=== PATIENT | female | born 1965 | race Hispanic/Latino ===

== ENCOUNTER → 2017-03-19 | Outpatient (CLI) | payer OTHER ==
--- NOTE | 2017-03-19 09:13 | Diagnostic Imaging Report ---
PROCEDURE: CT abdomen and pelvis without contrast. TECHNIQUE: Multiple contiguous axial images were obtained through the abdomen and pelvis without the use of intravenous contrast. INDICATION: Left-sided abdominal pain. The lung bases demonstrate no significant abnormality. The liver, the gallbladder, the pancreas, the spleen, and adrenal glands appear markable. The kidneys demonstrate no hydronephrosis or stones. Calcifications around the distal left ureter appears to relate to phleboliths with no definite ureteric stone. No bladder stone is identified as well. There is suggestion of prior hysterectomy. Correlate with surgical history. There is no bowel obstruction. The appendix is normal. There is abdominal wall laxity and diastases of the recti in the periumbilical region. The abdominal aorta is normal in caliber. No para-aortic significantly enlarged lymph nodes seen. The osseous structures demonstrate minimal left scoliotic curvature. Mild degenerative changes of the hip joints seen. IMPRESSION: 1. No hydronephrosis. Left pelvic calcifications appear to be phleboliths with no definite urinary tract stone. 2. Abdominal wall laxity and diastases of the recti in the periumbilical region. Dictated by: Dictated on workstation # [id number]
== END ==
LOC: RAD 08:31
PROVIDERS: ATTEND Nurse Practitioner Family
DX: R10.30 Lower abdominal pain, unspecified (principal)
CPT/HCPCS: 74176

== ENCOUNTER 2017-04-27 11:30 | Outpatient (CLI) | payer OTHER ==
[~2017-04-27] VITALS: Ht 134.6 cm
[2017-04-28] MEDS ORDERED: OMG1KC PO (08:08)
[2017-04-28] MEDS ORDERED: PRAV20TA3 PO (08:09)
[2017-04-28] MEDS ORDERED: LORA-714 PO (08:09)
[2017-04-28] MEDS ORDERED: SUCR1TAB36 PO (08:55)
[2017-04-28] MEDS ORDERED: PANT40SU PO (08:55)
== END 2017-04-27 11:55 ==
LOC: PREOP 11:30
PROVIDERS: ATTEND Surgery
DX: Z01.818 Encounter for other preprocedural examination (principal); K29.70 Gastritis, unspecified, without bleeding; Z12.11 Encounter for screening for malignant neoplasm of colon

== ENCOUNTER 2017-04-28 07:17 | Day surgery (SDC) | payer OTHER ==
[~2017-04-28] VITALS: Ht 144.8 cm; Wt 74.4 kg
--- OUTSIDE RECORDS SUMMARY | 2017-04-28 07:21 | XMS REPORT ---
Author JESSICA Lawrence Organization [employer] Address Unknown Phone Unavailable Care Team Providers Care Land Management Forester Name Role Phone JESSICA SILVA CP Unavailable Allergies, Adverse Reactions, Alerts Substance Reaction Event Type Penicillin G Sodium hives Drug Allergy Problems Problem Type Condition Code Onset Dates Condition Status Assessment H/O total hysterectomy with bilateral salpingo-oophorectomy (BSO) Z98.89 Active Problem Benign essential hypertension I10 Active Problem Hyperlipemia E78.5 Active Problem Metabolic syndrome E88.81 Active Assessment Breast cancer screening Z12.39 Active Assessment Colon cancer screening Z12.11 Active Problem H/O total hysterectomy with bilateral salpingo-oophorectomy (BSO) Z98.89 Active Assessment Well woman exam Z01.419 Active Medications Medication Code System Code Instructions Start Date End Date Status Dosage Losartan Potassium [facility] [address]-09 100 MG Orally Once a day 1 tablet Pravastatin Sodium [facility] [address]-38 10 MG Orally Once a day 1 tablet Procedures Procedure Coding System Code Date TEST FOR BLOOD, FECES CPT-4 83874 Jul 04, 2015 Preventive Care Est Pt. Age 40-64 CPT-4 08506 Jul 04, 2015 SPECIMEN HANDLING CPT-4 85575 Jul 04, 2015 Vital Signs Date/Time: Jul 04, 2015 Temperature 97.7 F Weight 169.9 lbs Height 58 1/2 in BMI 34.90 Index Blood Pressure Diastolic 78 mmHg Blood Pressure Systolic 128 mmHg Cardiac Monitoring Heart Rate 73 bpm Results Name Result Date Reference Range Unit Abnormality Flag HEMOCCULT (IN HOUSE) Summary Purpose [employer] Submission
--- OUTSIDE RECORDS SUMMARY | 2017-04-28 07:22 | XMS REPORT ---
Author JESSICA Lawrence [facility] [employer] Address Unknown Phone Unavailable Care Team Providers Care Hyperion Administrator Name Role Phone JESSICA SILVA CP Unavailable Allergies, Adverse Reactions, Alerts Substance Reaction Event Type Penicillin G Sodium hives Drug Allergy Problems Problem Type Condition Code Onset Dates Condition Status Problem Benign essential hypertension I10 Active Problem Hyperlipemia E78.5 Active Problem Metabolic syndrome E88.81 Active Assessment Hyperlipemia E78.5 Active Assessment Metabolic syndrome E88.81 Active Assessment Acute sinusitis J01.90 Active Assessment Benign essential hypertension I10 Active Medications Medication Code System Code Instructions Start Date End Date Status Dosage Zithromax Z-Sheldon [facility] [address]-38 250 MG Orally Once a day Jun 21, 2015 Jun 26, 2015 2 tablets on the first day, then 1 tablet daily for 4 days Losartan Potassium [facility] [address]-46 100 MG Orally Once a day 1 tablet Pravastatin Sodium [facility] [address]-17 10 MG Orally Once a day 1 tablet Procedures Procedure Coding System Code Date Office Visit, Est Pt., Level 4 CPT-4 19944 Jun 21, 2015 Vital Signs Date/Time: Jun 21, 2015 Temperature 99.0 F Weight 171.9 lbs Height 58 1/2 in BMI 35.31 Index Blood Pressure Diastolic 84 mmHg Blood Pressure Systolic 122 mmHg Cardiac Monitoring Heart Rate 83 bpm Results No Known Results Summary Purpose [employer] Submission
--- OUTSIDE RECORDS SUMMARY | 2017-04-28 07:22 | XMS REPORT ---
Author SHAHEED Alejandro Organization [employer] Address Unknown Phone Unavailable Care Team Providers Care Procurement Technician Name Role Phone SHAHEED ZARATE CP Unavailable Allergies No Known Allergies Problems Problem Type Condition ICD-9 Code Onset Dates Condition Status Assessment Dental examination V72.2 Active Medications No Known Medications Procedures Procedure Coding System Code Date INTRAORL-PERIAPICAL 1 FILM 03470 CPT-4 D0220 May 06, 2015 EXTRAC ERUPTED TOOTH/EXPOSED ROOT CPT-4 D7140 May 06, 2015 LTD ORAL EVALUATION - PROBLEM FOCUS CPT-4 D0140 May 06, 2015 Results No Known Results Summary Purpose [employer] Submission
[2017-04-28] MEDS ORDERED: MIDAZOLAM 2 MG/2 ML (VERSED) VIAL ONE (07:32)
[2017-04-28] MEDS ORDERED: PROPOFOL INJECTION 50 ML IV ONE (07:32)
[2017-04-28] MEDS ORDERED: LACTATED RINGERS 1,000 ML IV ONE (07:32)
[2017-04-28] MEDS ORDERED: LACTATED RINGERS 1,000 ML IV SCH (07:45)
[2017-04-28] MEDS ORDERED: HURRICAINE EXT TUBE (BENZOCAINE) XX ONE (07:45)
[2017-04-28 08:02] VITALS: BP 142/81
[2017-04-28] MEDS ORDERED: OMG1KC PO (08:08)
[2017-04-28] MEDS ORDERED: PRAV20TA3 PO (08:09)
[2017-04-28] MEDS ORDERED: LORA-714 PO (08:09)
--- NOTE | 2017-04-28 08:09 | Progress Note-Pre Operative ---
Pre-Operative Progress Note H&P Reviewed The H&P was reviewed, patient examined and no changes noted. Time Seen by Provider: 08:05 Date H&P Reviewed: Apr 28, 2017 Time H&P Reviewed: 08:03 Pre-Operative Diagnosis: Gastritis, Screening colonoscopy AIMEE WHITEHEAD DO Apr 28, 2017 08:09
--- NOTE | 2017-04-28 08:50 | Progress Note-Post Operative ---
Post-Operative Progess Note Surgeon (s)/Soap Mixer (s) Surgeon AIMEE WHITEHEAD DO Soap Mixer: none Pre-Operative Diagnosis Gastritis, Screening colonoscopy Post-Operative Diagnosis Gastritis Gastric Polyp Internal Hemorrhoids Procedure & Operative Findings Date of Procedure 04/28/17 Procedure Performed/Findings EGD with biopsy Colonoscopy Anesthesia Type IV sedation by WHEAT INSPECTOR Estimated Blood Loss Estimated blood loss (mL): scant Specimens/Packing Specimens Removed Antral bx Gastric polyp Cardia bx GE jxn bx AIMEE WHITEHEAD DO Apr 28, 2017 08:50
[2017-04-28] MEDS ORDERED: PANT40SU PO (08:55)
[2017-04-28] MEDS ORDERED: SUCR1TAB36 PO (08:55)
--- NOTE | 2017-04-28 08:58 | Endoscopy Discharge Instruct ---
Endo Procedure/Findings Findings 1.: Gastritis 2.: Other Findings (Gastric Polyp) 3.: Internal Hemorrhoids Discharge Instructions - Activity: You might feel a little sleepy until tomorrow. This is due to the medicine you received to relax you. Until tomorrow, you should: NOT drive a car, operate machinery or power tools. NOT drink any alcoholic beverages. NOT make any important decisions or sign importortant papers. Do not return to work until tomorrow, unless otherwise instructed. Resume previous activities tomorrow. Diet: Start by taking liquids. If you tolerate liquids, advance to solid food. Call for appt in one week, Instructions: 1.: Colonscopy in 10 years 2.: Reflux Diet, EGD in 1 year Notify Physician - If you experience excessive bleeding, unusual abdominal pain, fever, or chest pain, contact your doctor immediately. Follow-Up: - I have received and understand the above instructions and will call my doctor if I have any further questions. Patient Signature Date Nurse Signature Other (Relationship) AIMEE WHITEHEAD DO Apr 28, 2017 08:58
[2017-04-28 09:00] VITALS: BP 143/68
[2017-04-28 09:24] VITALS: BP 152/79
[2017-04-28 09:34] VITALS: BP 152/79
--- NOTE | 2017-04-28 10:54 | OPERATIVE REPORT ---
DATE OF SERVICE: 04/28/2017 PREOPERATIVE DIAGNOSES: 1. Gastritis. 2. Screening colonoscopy. POSTOPERATIVE DIAGNOSES: 1. Gastritis. 2. Gastric polyp. 3. Internal hemorrhoids. PROCEDURE: 1. EGD with biopsy. 2. Colonoscopy. SURGEON: Dr. Leroy. FINISHING FRAME RUNNER: None. ANESTHESIA: IV sedation by ADJUNCT PHYSICS INSTRUCTOR. SPECIMEN: 1. One biopsy from the antrum. 2. One biopsy from the cardia. 3. Gastric polyp biopsy. 4. Biopsy of the GE junction. BLOOD LOSS: Scant. FLUIDS: Per anesthesia. POSTOPERATIVE CONDITION: Stable. INDICATION FOR PROCEDURE: The patient is a 51-year-old female who has been complaining of some heartburn and some left-sided abdominal pain. She has also never had a colonoscopy. FINDINGS: The patient had pretty severe gastritis, possibly some minimal changes in the GE junction and she had a gastric polyp that was removed. During the colonoscopy she had some internal hemorrhoids. PROCEDURE NOTE: After informed and then informed consent was obtained, the patient was brought to the endoscopy suite and placed in the left lateral decubitus position. She was administered IV sedation by the ADJUNCT PHYSICS INSTRUCTOR who then monitored her vitals the entire time. A scope was placed down the mouth into the esophagus and down into the stomach. Upon entering the stomach there was a little bit of redness in the antrum. Push into the first portion of the duodenum looked pretty normal. Took a biopsy of the antrum and then retroflexed and looked up into the cardia. Saw a gastric polyp, removed this polyp and then did another biopsy of the pretty erythematous looking cardia. I took a biopsy of this and then looked and did not really see a hiatal hernia. I pulled back into the GE junction and esophagus and saw a little bit of changes. I did a biopsy here as well and then pulled the scope out. The patient tolerated this. I then switched gloves and switched the scope and proceeded to perform a colonoscopy. I inserted the scope all the way about 150 cm, I was able to get all the way to cecum, took a picture of the appendiceal orifice. I was able to get into the terminal ileum and took a picture. I then slowly withdrew the scope insufflating, looked circumferentially as well as looking at the cecum, up the ascending colon to the hepatic flexure, then down the transverse colon to the splenic flexure and then into the descending colon and finally down the sigmoid into the rectum, retroflexed in the rectal vault, saw some internal hemorrhoids but no other obvious pathology in the colon. Removed the scope. The patient tolerated the procedure and she was recovered in the endoscopy suite and then transferred. Job ID: [id number] DocumentID: [id number] Dictated Date: 04/28/2017 09:10:14 Nurse'S Aides Teacher Date: 04/28/2017 10:53:55 Dictated By: AIMEE LEROY DO
== END 2017-04-28 09:40 | disposition home or self-care (01) ==
LOC: ENDO 07:17
PROVIDERS: ATTEND Surgery
DX: Z12.11 Encounter for screening for malignant neoplasm of colon (principal); K31.7 Polyp of stomach and duodenum; K29.50 Unspecified chronic gastritis without bleeding; K64.8 Other hemorrhoids; I10 Essential (primary) hypertension; E78.5 Hyperlipidemia, unspecified; M19.90 Unspecified osteoarthritis, unspecified site; G62.9 Polyneuropathy, unspecified; B96.81 Helicobacter pylori [H. pylori] as the cause of diseases classified elsewhere